=== PATIENT | male | born 1970 | race Caucasian/White ===

== ENCOUNTER 2023-10-09 13:11 | Inpatient (IN) | payer OTHER, MEDICAID ==
[~2023-10-09] VITALS: Ht 172.7 cm; Wt 141.7 kg
[2023-10-09 13:21] VITALS: BP_SYST 150; PULSE 89; RESP 18; TEMP 99.8; O2SAT 96
--- NOTE | 2023-10-09 13:21 | NUR ---
PT IS A 52M BIB SELF FROM HOME, PRESENTING TO ED WITH MULTIPLE COMPLAINTS. PT STATES HAVING A MDRO URINE INFECTION THAT HE WAS SUPPOSED TO HAVE RECEIVED ERTHROPENEM (D/T SUSCEPTIBILITY) BUT NEVER RECEIVED
--- NOTE | 2023-10-09 13:30 | NUR ---
DR WILLIAM AT BEDSIDE, EVALUATING PT
--- NOTE | 2023-10-09 13:40 | NUR ---
PT STATING HE NEEDS VANCOMYCIN AND ERTHOPENEM FOR STAPH INFECTION IN URINE. PT BRINGING URINE CULTURE SHOWING 50K+ STAPH IN URINE CULTURE DONE 3 DAYS AGO. INFORMED PT THAT ER WILL NEED OWN LABWORK AND DIAGNOSTIC FINDINGS PRIOR TO ANY ABX ADMINISTRATION. PT STATING ER STAFF IS ATTEMPTING TO KILL PT AND THAT THEY ARE TREATING HIM LIKE A LIAR. INFORMED PT THAT PT'S STORY IS BEING HEARD BUT ER WORKUP IS NECESSARY PRIOR TO ER PHYSICIAN'S DECISION MAKING. PT REPEATING THE NEED FOR ABX STAT AND THAT HE WENT TO [employer] AND THAT ER DECISION MAKING IS FLAWED.
[2023-10-09] MEDS: NS 1000 ML IV.SOLN IV ONE (13:57)
--- NOTE | 2023-10-09 14:15 | NUR ---
WALKED INTO PT ROOM, PT AGAIN REPEATING THAT STAT VANCO AND ERTHROPENEM IS REQUIRED FOR HIS CONDITION AND QUESTIONING WHY ER PHYSICIAN WILL NOT ORDER ABX. ATTEMPTED TO EDUCATE PT REGARDING ER WORKUP NEEDING TO BE PERFORMED PRIOR TO ABX ADMINISTRATION AND ER DECISION MAKING BY THE PHYSICIAN. PT ADAMANTLY STATING THAT HE NEEDS ABX OR HE WILL IN THE ER D/T POOR CARE BY ER STAFF. ATTEMPTED TO EDUCATE PT REGARDING NECESSARY ER WORKUP PRIOR TO MEDICATION REGIMEN. PT DENYING NECESSITY OF WORKUP AND VOICING FRUSTRATION WHY ER STAFF WILL NOT BELIEVE HIM.
[2023-10-09 14:18] LABS: BASOPHILS # (AUTO) 0.1 K/uL (0.0-0.2); BASOPHILS % (AUTO) 0.6 % (0.0-2.0); EOSINOPHILS # (AUTO) 0.2 K/uL (0.0-0.4); HEMATOCRIT 43.3 % (36-54); HEMOGLOBIN 14.3 g/dL (14.0-18.0); LYMPHOCYTES # (AUTO) 1.7 K/uL (1.0-5.5); LYMPHOCYTES % (AUTO) 18.5 % (20.5-51.5); MEAN CORPUSCULAR HEMOGLOBIN 27 pg (27-31); MEAN CORPUSCULAR HGB CONC 33 % (32-36); MEAN CORPUSCULAR VOLUME 83 fL (79.0-98.0); MONOCYTES # (AUTO) 0.8 K/uL (0.0-1.0); MONOCYTES % (AUTO) 8.3 % (1.7-9.3); NEUTROPHILS # (AUTO) 6.4 K/uL (1.8-7.7); NEUTROPHILS % (AUTO) 70.6 % (40.0-70.0); PLATELET COUNT (AUTO) 263 K/uL (130-430); RED BLOOD CELL COUNT(AUTO) 5.24 MIL/uL (4.2-6.2); RED CELL DISTRIBUTION WIDTH 14.8 % (9.0-15.0); WHITE BLOOD COUNT (AUTO) 9.1 K/uL (4.8-10.8)
--- NOTE | 2023-10-09 14:20 | NUR ---
PT SET OFF ALARM, NO DISTRESS PT COMPLAINS OF WANTING TO DICTATE THE HOSPITAL PROCESS. REASSURED PT OF PROCESS AND REQUESTED PATIENCE. PT CONTINUES TO DEMAND QUICKER SERVICE.
--- NOTE | 2023-10-09 14:24 | NUR ---
UPON RETURNING TO ROOM, PT VOICING CONCERN REGARDING HIS PROSTATITIS AND THAT HIS BLADDER WILL BURST AND THAT HE WILL IN ER. PT STATING UROLOGIST MASSAGED HIS PROSTATE TO OBTAIN URINE CULTURE CONTAINING STAPH. QUESTIONED PT HOW URINE SPECIMEN IS OBTAINED/PRODUCED. PT STATING URINE COMES FROM PROSTATE AND THAT UROLOGIST HAD TO MASSAGE HIS PROSTATE TO OBTAIN PROSTATE CULTURE FOR URINE. EDUCATED PT THAT URINE COMES FROM BLADDER FROM THE KIDNEYS AND THAT PT'S PAPER IS SHOWING URINE CULTURE, NOT PROSTATE CULTURE. PT REQUESTING ER PHYSICIAN TO ADD ON PSA AND ABX (VANCO, ERTHROPENEM). EMPHASIZED TO PT AGAIN THE NEED FOR ER WORKUP PRIOR TO ABX TREATMENT TO DETERMINE THE NEED AND ER PHYSICIAN DECISION.
[2023-10-09 14:25] LABS: ALANINE AMINOTRANSFERASE 101 U/L (12-78); ALBUMIN 3.6 g/dL (3.4-4.8); ANION GAP 12 (5-15); ASPARTATE AMINOTRANSFERASE 58 U/L (10-37); BILIRUBIN,DIRECT 0.1 mg/dL (0.0-0.3); CALCIUM 9.2 mg/dL (8.4-11.0); CARBON DIOXIDE 24 mmol/L (23-29); CHLORIDE 104 mmol/L (98-107); CREATININE 0.81 mg/dL (0.55-1.30); GFR AFRICAN AMERICAN 129 mL/min (>90); GFR NON AFRICAN-AMERICAN 107 mL/min (>90); GLUCOSE 121 mg/dL (74-106); SODIUM SERUM 140 mmol/L (136-145); TOTAL BILIRUBIN 0.4 mg/dL (0.0-1.0); TOTAL PROTEIN, SERUM 7.5 g/dL (6.4-8.3); UREA NITROGEN, BLOOD 19 mg/dL (8-21)
[2023-10-09 14:26] LABS: PROTHROMBIN TIME 10.5 SECS (9.5-12.5)
[2023-10-09 14:30] LABS: BILIRUBIN,URINE NEGATIVE (NEGATIVE); BLOOD, URINE NEGATIVE (NEGATIVE); CLARITY/URINE CLEAR (CLEAR); COLOR,URINE YELLOW (YELLOW); GLUCOSE,URINE NEGATIVE (NEGATIVE); KETONES,URINE TRACE (NEGATIVE); LEUKOCYTE ESTERASE ,URINE NEGATIVE (NEGATIVE); NITRITE, URINE NEGATIVE (NEGATIVE); PROTEIN URINE TRACE (NEGATIVE); UROBILINOGEN,URINE 0.2 (0.2-1.0)
[2023-10-09 14:38] LABS: BACTERIA,URINE RARE /HPF (None Seen); CALCIUM OXALATE CRYSTALS,UR 0-10 /HPF (None Seen); MUCUS,URINE None Seen /LPF (None Seen); RBC,URINE NONE SEEN /HPF (0-3); WBC,URINE NONE SEEN /HPF (0-3)
--- NOTE | 2023-10-09 14:40 | NUR ---
PT WALKING UP TO NURSING STATION AND REQUESTING TO SPEAK WITH DR. WILLIAM, ATTEMPTING TO DETERMINE PLAN OF CARE FOR HIMSELF, STATING THAT HE NEEDS THE VANCO AND ERTHROPENEM STAT. PT VOICING FRUSTRATION ON WHY HE HAS NOT RECEIVED ANY ABX. INSTRUCTED PT TO RETURN TO ROOM AND THAT ER WORKUP IS STILL PENDING. PT TAKEN BACK TO HIS ROOM BUT CONTINUING TO ARGUE WITH ER STAFF REGARDING MEDICATION REGIMEN THAT PT SELF-STATING THE NEED FOR.
--- NOTE | 2023-10-09 15:00 | NUR ---
PT SET OFF ALARM, UPON ASSESSING PT AND ENVIRONMENT NO SIGNS OF DISTRESS. PT DEMANDS QUICKER SERVICE. NOTIFIED CHARGE OF PATIENTS BEHAVIORAL CONCERNS. SECURITY PRESENT.
--- NOTE | 2023-10-09 15:06 | NUR ---
bladder scan completed. 0 ml noted in bladder. notified
--- NOTE | 2023-10-09 15:45 | NUR ---
PT WALKING OUT OF ROOM, REQUESTING HIS VANCOMYCIN TO BE DELIVERED TO HIM FOR HIS FATAL PROSTATITIS. PT STATING HE IS DYING AND THAT ER STAFF IS WAITING FOR HIM TO PASS. INFORMED PT REGARDING VANCOMYCIN PER PHARMACY AND THAT PHARMACY IS STILL PREPARING MEDICATION. PT VOICING FRUSTRATION OVER WHY HIS STAT VANCOMYCIN HAS YET TO BE DELIVERED/ADMINISTERED. EDUCATED PT ON TIME BEING NEEDED FOR CORRECT PROCESS AND SAFE MEDICATION ADMINISTRATION.
[2023-10-09] MEDS: LORazepam 2 MG/ML VIAL IVP ONE (16:04)
--- NOTE | 2023-10-09 16:04 | NUR ---
ATTEMPTED TO MEDICATE PT WITH ATIVAN 1MG ORDERED BY DR WILLIAM. PT STATING BECAUSE HE WAS NOT ABLE TO VISUALIZE THE BLUE CAP COMING OFF OF THE VIAL WITH HIS OWN EYES, PT STATING HE IS WORRIED D/T NOT SEEING THE MED PULL HIMSELF. PT REQUESTING PRIMARY RN TO PULL ANOTHER DOSE OF ATIVAN TO DOSE IN FRONT OF HIM. INFORMED PT REGARDING BENZODIAZEPINE BEING A SCHEDULED DRUG AND THAT NEW DOSE CANNOT BE SIMPLY PULLED FROM [facility]. PT STATING HE WILL PAY $100 FOR ANOTHER VIAL WITH HIS MEDICAL INSURANCE. INFORMED PT THAT D/T NARCOTIC POLICY, PT CANNOT RECEIVE A SECOND VIAL PER HIS OWN WILL AND THAT MEDICATION WILL BE WASTED D/T REFUSAL. PT VERBALIZED UNDERSTANDING.
--- NOTE | 2023-10-09 16:30 | NUR ---
MEDICATION VERIFIED IN FRONT OF PATIENT. ALLOWED PT TO TOUCH MEDICATION TO REASSURE REGARDING MEDICATION TAMPER. PT REQUESTING BAG TO BE SPIKED IN FRONT OF HIM. BAG SPIKED IN FRONT OF PATIENT AND STERILE TECHNIQUE USED FOR CLEANING IV SALINE LOCK W ALCOHOL WIPE AND STARTING IV INFUSION PRIOR TO CONNECTING TO PT TO VISUALIZE FLOW OF CONSTITUTION. PT FINALLY VERBALIZING UNDERSTANDING OF MEDICATION ADMINISTRATION AND ALLOWING FOR MEDICATION TO BE GIVEN. VANCOMYCIN INFUSING AT 125ML/HR TO R WRIST 20G PIV.
[2023-10-09] MEDS: VANCOMYCIN HCL 1.25 GM/NS 250 ML IV SCH (16:41)
--- NOTE | 2023-10-09 16:54 | NUR ---
# 20 gauge angiocath placed to L FOREARM. Use of asceptic technique. Opsite placed over site. Blood return noted. Blood for lab drawn from site. Flushed with 10 cc of normal saline. No evidence of infiltration noted.
--- NOTE | 2023-10-09 17:20 | NUR ---
PT PROVIDED LUNCH BOX AND ORANGE JUICE PER REQUEST. PT CALM AND COOPERATIVE IN BED.
[2023-10-09] MEDS ORDERED: DEXTROSE 50% JECT 50 ML DISP.SYRIN IVP PRN (17:45)
[2023-10-09] MEDS ORDERED: ONDANSETRON HCL 4 MG/2 ML VIAL IVP PRN (18:15)
[2023-10-09] MEDS ORDERED: ACETAMINOPHEN 325 MG TABLET PO PRN ×2 (18:15)
--- NOTE | 2023-10-09 18:27 | NUR ---
Admit bed requested Patient will be admitted to care of . Admitted to med surg unit. Diagnosis acute prostatitis with urinary retention Inpatient (Yes or No) y Observation (Yes or No) n Orientation concerns or request close to nursing station (Yes or No) n Covid Status n/a On vent or bipap n Isolation requirements n Needs a sitter n From Home (Yes or if No enter name of facility) y Requires Dialysis (Yes or No) n Med Rec Completed (Yes of No) y
--- NOTE | 2023-10-09 18:35 | NUR ---
PT TAKEN TO CT VIA WHEELCHAIR, ACCOMPANIED BY KACIE GALEAS
--- NOTE | 2023-10-09 19:05 | NUR ---
PT BACK IN ER, PLACED BACK IN BED
--- NOTE | 2023-10-09 19:15 | NUR ---
PRESENTED PYRIDIUM 200MG TO PT (100MG X2). EDUCATED PT ON DOSING AND RATIONALE FOR MEDICATION. PT STATING THAT HE ALREADY TOOK A DOSE AND THAT TAKING 200MG WOULD REMAIN IN HIS SYSTEM FOR TOO LONG AND REFUSED TO TAKE MEDICATION. EDUCATED PT REGARDING MEDICATION AND WHY PT IS RECOMMENDED TO TAKE MEDICATION. PT STILL REFUSING TO TAKE MEDICATION AND REQUESTING ERTHROPENEM AND STATING HE NEEDS TO SPEAK WITH ER PHYSICIAN TO DICTATE HIS PLAN OF CARE. INFORMED PT THAT THERE HAS BEEN AN INFECTIOUS DISEASE PHYSICIAN CONSULTED FOR THE CASE FOR MDRO URINE CULTURE. PT HYPER-FOCUSED ON ERTHROPENEM AND QUESTIONING WHEN HE WILL GET HIS DOSE OF ERTHROPENEM. INFORMED PT THAT HE CANNOT DICTATE HIS OWN CARE AND THAT HOSPITALIST AND CONSULTED PHYSICIANS WILL DETERMINE PLAN OF CARE FOR HIM. PT STATING WHAT ABX HAS HOSPITALIST ORDERED AND REQUESTING TO SPEAK WITH HOSPITALIST TO ORDER ABX. AGAIN, EMPHASIZED TO PT THAT HE CAN ONLY SUGGEST BUT NOT DICTATE HIS OWN CARE IN THE HOSPITAL.
[2023-10-09] MEDS: PHENAZOPYRIDINE HCL 100 MG TABLET PO ONE (19:19)
--- NOTE | 2023-10-09 19:30 | NUR ---
REPORT GIVEN TO MONICA COKER WITH OPPORTUNITIES FOR QUESTIONS AND ANSWERS PROVIDED. CONTINUATION OF CARE ASSUMED.
--- NOTE | 2023-10-09 19:57 | NUR ---
Received patient in Bed#8, report given by MONICA Saeed. Patient came in for urinary problem. Pain scale 10/10. Patient is alert/orientedx4, able to make needs known. Patient is frequently requesting assitance and repeteadly insist his own medication to be given. No family member at the bedside. Vital signs taken, stable. IV line to (R)wrist & (L)Forearm with both #20 gauge, intact and patent. Infused well. On room air, saturating at 94%. Unlabored breathing. No distress noted. Will continue with the plan of care.
[2023-10-09 20:00] VITALS: BP_SYST 131; PULSE 82; RESP 20; TEMP 98; O2SAT 97
--- NOTE | 2023-10-09 20:00 | NUR ---
Provide PM snacks per patient request and demanding for more. Assisted the patient in cleaning the floor and sorrounding areas to ensure safe environment. Notified EVS of the need for room cleaning.
--- NOTE | 2023-10-09 20:33 | NUR ---
Patient will be admitted to care of Dr. Willett. Admitted to medsurg unit. Will go to room 123B. Belongings list completed. Complete and up to date summary report printed. SBAR report to be given to MONICA Berg at bedside with opportunity for questions.
--- NOTE | 2023-10-09 20:40 | NUR ---
ADMISSION RECEIVED BEDSIDE REPORT FROM ER NURSE, SHEELA. PT ARRIVED VIA GURNEY, PT IS AMBULATORY, ABLE TO WALK AND TRANSFER TO BED IN ROOM 123-B BY HIMSELF. A/OX4. WITH COMPLAIN OF URINARY PROBLEMS. ORIENTATED TO THE ROOM . CALL LIGHT WITHIN REACH. BED LOCKED IN LOWEST POSITION.
[2023-10-09 21:00] VITALS: BP_SYST 132; PULSE 74; RESP 16; TEMP 98.1
[2023-10-09 21:34] VITALS: O2SAT 98
--- NOTE | 2023-10-09 21:48 | NUR ---
MD RAMIREZ CALLED BACK. MADE ORDERS. TORB AND VERIFIED.
[2023-10-09] MEDS: VANCOMYCIN HCL 1.25 GM/NS 250 ML IV ONE (23:24)
[2023-10-10 00:20] VITALS: BP_SYST 139; PULSE 79; RESP 18; TEMP 98.6; O2SAT 97
[2023-10-10] MEDS: HYDROcodone/ACETAMIN 10-325 MG TAB PO PRN (00:50)
--- NOTE | 2023-10-10 00:50 | NUR ---
DUE MEDICATION GIVEN, PT COMPLAINED OF PAIN, NORCO 10 PO PRN GIVEN FOR PAIN. PT STILL COMPLAINED OF PAIN AND ASKING FOR DILAUDID BUT EXPLAINED TO HIM DILAUDID IS CONTRAINDICATED FOR PROSTATITIS PER MD RAMIREZ. PT STILL NOT LISTENING AFTER EXPLANATION IS GIVEN.
--- NOTE | 2023-10-10 02:08 | NUR ---
CONSULTATION PAGED/CALLED Reason for Consultation: MDRO PROSTATITIS Person Who was Notified: STEPHANIE Consulting Physician: NANCY Potato Bucker Specialty: Ordering Physician: JAMES
--- NOTE | 2023-10-10 06:23 | NUR ---
BS= 107, NO ISS COVERAGE GIVEN. PT NOT IN DISTRESS. CALL LIGHT WITHIN REACH.PT AMBULATORY.
--- NOTE | 2023-10-10 06:32 | NUR ---
CLOSING NOTES PT. IS IN BED RESTING, STILL ASKING FOR DILAUDID EVEN AFTER GIVING EXPLANATION. AND INFORMED PATIENT MD WILL MAKE ROUNDS IN THE MORNING IF SHE HAS CONCERNS ABOUT MEDICATION. ALL NEEDS MET THROUGHOUT SHIFT. BED ALARM OFF. PT IS AMBULATORY. AND CALL LIGHT WITHIN REACH. WILL ENDORSE TO MORNING SHIFT NURSE FOE CONTINUITY OF CARE.
--- NOTE | 2023-10-10 08:00 | NUR ---
ASSESSMENT DONE PT AAOX 4. VSS STABLE. AFEBRILE HAS IV ACCESS ON LEFT FOREARM #20 SL HAS IV ACCESS ON RT HAND/WRIST #20 SL REFUSED TO WEAR HOSPITAL GOWN. INSISTING TO HAVE VANCOMYCIN IV RIGHT AWAY. BED LOW POSITION. REFUSED TO HAVE BED ALARM MARKET RESEARCH INTERVIEWER LIGHTS WITHIN REACH CONTINUE TO MONITOR
[2023-10-10 08:24] LABS: BASOPHILS % (AUTO) 0.8 % (0.0-2.0); EOSINOPHILS # (AUTO) 0.2 K/uL (0.0-0.4); HEMATOCRIT 40.5 % (36-54); HEMOGLOBIN 13.4 g/dL (14.0-18.0); LYMPHOCYTES # (AUTO) 1.8 K/uL (1.0-5.5); LYMPHOCYTES % (AUTO) 29.5 % (20.5-51.5); MEAN CORPUSCULAR HEMOGLOBIN 27 pg (27-31); MEAN CORPUSCULAR HGB CONC 33 % (32-36); MEAN CORPUSCULAR VOLUME 82 fL (79.0-98.0); MONOCYTES # (AUTO) 0.5 K/uL (0.0-1.0); MONOCYTES % (AUTO) 8.5 % (1.7-9.3); NEUTROPHILS # (AUTO) 3.6 K/uL (1.8-7.7); NEUTROPHILS % (AUTO) 58.2 % (40.0-70.0); PLATELET COUNT (AUTO) 216 K/uL (130-430); RED BLOOD CELL COUNT(AUTO) 4.94 MIL/uL (4.2-6.2); RED CELL DISTRIBUTION WIDTH 14.8 % (9.0-15.0); WHITE BLOOD COUNT (AUTO) 6.1 K/uL (4.8-10.8)
[2023-10-10 08:35] LABS: PROTHROMBIN TIME 10.5 SECS (9.5-12.5)
[2023-10-10 08:40] LABS: ALBUMIN 3.1 g/dL (3.4-4.8); CALCIUM 8.8 mg/dL (8.4-11.0); CREATININE 0.67 mg/dL (0.55-1.30); POTASSIUM 4.3 mmol/L (3.5-5.1); TOTAL BILIRUBIN 0.3 mg/dL (0.0-1.0); TOTAL PROTEIN, SERUM 6.6 g/dL (6.4-8.3)
[2023-10-10 08:45] VITALS: BP_SYST 170; PULSE 69; RESP 18; TEMP 97; O2SAT 96
[2023-10-10] MEDS: PHENAZOPYRIDINE HCL 100 MG TABLET PO SCH (08:53)
--- NOTE | 2023-10-10 09:00 | NUR ---
PATIENT KEEPS COMING TO THE STATION FOR ANYTHING ELSE. VERY NEEDY AND HARD HEADED. SECURITY CALLED MANY TIMES THE WHOLE DAY.
--- NOTE | 2023-10-10 09:02 | NUR ---
REFUSED PYRIDIUM. VERY NEEDY. NORCO PO GIVEN.
[2023-10-10] MEDS: MORPHINE 4 MG INJ. 4 MG/ML VIAL IVP ONE (10:25)
--- NOTE | 2023-10-10 10:32 | NUR ---
PATIENT: PATIENT YELLING FOR NURSE, ENTERED ROOM PATIENT STATED "ITS BURNING IN MY URETHRA" OFFERED ASSISTANCE TO THE PATIENT STATED THAT HE WANTS MORPHINE, INVANZ AND A BLADDER SCAN. PATIENT RN WITH ANOTHER PATIENT, MORPHINE IV GIVEN, OPENED IN FRONT OF PATIENT, PATIENT STATED HE WASN'T HAPPY THAT RN DILUTED MORPHINE INTO SALINE, STATED RN NEEDED TO OPEN NEW FLUSH HE DIDN'T SEE RN OPEN FLUSH PACKAGE IN FRONT OF HIM ALTHOUGH FLUSHES OPENED AT SAME TIME. MEDICATION ADMINISTERED PATIENT STATED, I NEED THIS ANTIBIOTIC REMOVING IV INVANZ FROM PERSONAL BAG, EDUCATION PROVIDED THAT PATIENT WAS CURRENTLY RECEIVING VANCOMYCIN, PER THE MD ORDER AND THE RN WOULD FOLLOW UP. PT REMAINED UPSET REGARDLESS OF ASSISTANCE PROVIDED BY STAFF.
[2023-10-10 11:00] VITALS: O2SAT 98
[2023-10-10 11:03] VITALS: BP_SYST 111; BP_SYST 131; PULSE 59; PULSE 61; RESP 16; TEMP 97.6; TEMP 98.2; O2SAT 97
[2023-10-10] MEDS ORDERED: ONDANSETRON HCL 4 MG/2 ML VIAL IVP PRN (11:15)
--- NOTE | 2023-10-10 12:00 | NUR ---
LATEST BS 123 MG/DL. NO COVERAGE GIVEN.
[2023-10-10] MEDS: MEROPENEM 1 GM in NS 100 ML IV SCH (14:15)
[2023-10-10 16:07] VITALS: BP_SYST 113; PULSE 73; RESP 17; TEMP 98.4; O2SAT 96
--- NOTE | 2023-10-10 16:29 | NUR ---
REFUSAL: "PATIENT REFUSED MORPHINE WHEN THIS RN OFFERED STATING IT WAS CONTAMINATE, BECAUSE HE DIDN'T WITNESS RN OPENING VIAL, VIAL OPENED IN ROOM WITH PATIENT, PT REQUESTING DILAUDID STATING THAT WHAT WORKS
[2023-10-10] MEDS: VANCOMYCIN HCL 1,500 MG in NS 250 ML IV SCH (16:53)
[2023-10-10] MEDS: MORPHINE 4 MG INJ. 4 MG/ML VIAL IVP PRN (17:12)
--- NOTE | 2023-10-10 18:00 | NUR ---
LATEST BS 126 MG/DL. NO COVERAGE GIVEN. PYRIDIUM TABLET GIVEN TO THE PATIENT.
--- NOTE | 2023-10-10 20:00 | NUR ---
SBAR REPORT GIVEN TO ALEJANDRO ANDERSON.
--- NOTE | 2023-10-10 20:13 | NUR ---
NOTES; PT. OUT IN THE HALLWAY KEEPS SAYING THAT HE NEEDS A BLADDER SCAN VERBALIZING HE IS FULL. NURSE ALLEN AWARE. FOUND OUT BLADDER SCAN IS BROKEN AND ITS ON REPAIR AND THERE IS ONLY 1 MACHINE THROUGHOUT THE WHOLE HOSPITAL. INFORMED PT. BUT INSISTING ON THE BLADDER SCAN, SECURITY WITH HIM SINCE HE IS NON COMPLIANT ON LISTENING TO NURSES. CALLED DR. GONZALEZ EXCHANGE TO INFORM THE PROBLEM. NURSE ALLEN ATTENDING TO PT.
[2023-10-10] MEDS: QUEtiapine FUMARATE 25 MG TABLET PO SCH (21:00)
[2023-10-10 23:27] VITALS: O2SAT 96
--- NOTE | 2023-10-10 23:34 | NUR ---
MST shift assessment completed at 2129, charted late
--- NOTE | 2023-10-11 07:02 | NUR ---
OPENING NOTE PATIENT WALKING UP AND DOWN HALLS AND STOPPING FREQUENTLY AT NURSES' STATION. PATIENT APPEARS ANXIOUS AND IS ASKING FOR MEDICATIONS HOURS BEFORE MEDICATIONS ARE DUE. PATIENT REFUSES TO WEAR HOSPITAL GOWN. PATIENT ARGUING WITH HOSPITAL SECURITY AND STAFF AND REFUSES TO GO BACK TO ASSIGNED ROOM. PATIENT DOES NOT HAVE ANY COMPLAINTS ABOUT PAIN, HOWEVER, IS ANXIOUS ABOUT POSSIBLE INFECTION.
[2023-10-11 08:01] VITALS: BP_SYST 115; PULSE 68; RESP 18; TEMP 98.6; O2SAT 99
[2023-10-11 08:30] VITALS: O2SAT 98
--- NOTE | 2023-10-11 08:40 | NUR ---
patient refuses to drink water, only small amounts of apple juice. states the water is not distilled therefore will not drink it.
--- NOTE | 2023-10-11 11:30 | NUR ---
PATIENT'S BLOOD SUGAR IS 176. PATIENT REFUSING INSULIN, STATING IT IS NOT CLEAN.
--- NOTE | 2023-10-11 12:00 | NUR ---
patient informed that he needs to have a midline placed for continued iv antibiotics at home. patient refusing midline placement, stating it is not clean
[2023-10-11 12:02] VITALS: BP_SYST 113; PULSE 71; RESP 17; TEMP 97.5; O2SAT 98
--- NOTE | 2023-10-11 14:46 | NUR ---
Dietitian Recommendations Consider CCHO, 2gm Na diet. Encourage good PO intakes. Please refer to nutrition assessment. Addendum: 10/11/23 at [address] Amended: Links added.
[2023-10-11 16:01] VITALS: BP_SYST 116; PULSE 68; RESP 18; TEMP 97.5; O2SAT 99
--- NOTE | 2023-10-11 17:15 | NUR ---
patient refusing blood sugar check, stating it is not clean
--- NOTE | 2023-10-11 17:23 | NUR ---
CONSULTATION PAGED REASON FOR CONSULTATION: OCD WAS CONSULT CALLED? Y PERSON WHO WAS NOTIFIED: LEFT A VOICEMAIL CONSULTING PHYSICIAN: LILIANA SOLITARIO SALES EXHIBITOR SPECIALTY: PSYCHE SALES EXHIBITOR PHONE NUMBER: [phone] REQUESTING PHYSICIAN: SADAF ESCOTO
--- NOTE | 2023-10-11 18:41 | NUR ---
BLADDER SCAN DONE AFTER PATIENT REQUEST. 0ML NOTED IN BLADDER SCANNER. PATIENT INSISTENT THAT NURSE IS LYING TO HIM EVEN AFTER NURSE HAD PATIENT OBSERVE RESULTS OF SCAN.
--- NOTE | 2023-10-11 18:50 | NUR ---
CLOSING NOTE: PATIENT IS WALKING IN AND OUT OF ASSIGNED ROOM ASKING FOR RN TO ADMINISTER IV MEDICATION. STAFF CONTINUES TO ENCOURAGE PATIENT TO USE CALL LIGHT INSTEAD OF WALKING TO NURSES' STATION. PATIENT APPEARS ANXIOUS REGARDING WHEN HE WILL GET HIS NEXT IV MEDICATION. PATIENT CONTINUES TO APPROACH NURSES WHILE THEY ARE ASSISTING OTHER PATIENTS IN THEIR ASSIGNED ROOMS.
[2023-10-11 20:00] VITALS: BP_SYST 136; PULSE 95; RESP 20; TEMP 98.4; O2SAT 94
--- NOTE | 2023-10-11 20:00 | NUR ---
OPENING NOTE: PATIENT AT THE NURSING STATING ASKING QUESTIONS REGARDING STAFFING. INFORMED OF THE NEXT NURSE THAT WILL BE ASSIGNED. PATIENT IN NO ACUTE DISTRESS, ABLE TO MAKE WANTS AND NEEDS KNOWN TO STAFF.
[2023-10-12] VITALS: BP_SYST 122; PULSE 92; RESP 18; TEMP 98; O2SAT 95
--- NOTE | 2023-10-12 05:12 | NUR ---
TELE PSYCH CONSULT CALLED FOR 8AM FOR OCD
[2023-10-12 05:31] LABS: ERYTHROCYTE SEDIMENTATION RATE 20 MM/HR (0-15)
[2023-10-12 05:44] LABS: BASOPHILS # (AUTO) 0.1 K/uL (0.0-0.2); BASOPHILS % (AUTO) 0.9 % (0.0-2.0); EOSINOPHILS # (AUTO) 0.2 K/uL (0.0-0.4); HEMATOCRIT 38.4 % (36-54); LYMPHOCYTES # (AUTO) 1.7 K/uL (1.0-5.5); LYMPHOCYTES % (AUTO) 25.2 % (20.5-51.5); MEAN CORPUSCULAR HEMOGLOBIN 28 pg (27-31); MEAN CORPUSCULAR HGB CONC 34 % (32-36); MEAN CORPUSCULAR VOLUME 82 fL (79.0-98.0); MONOCYTES # (AUTO) 0.5 K/uL (0.0-1.0); MONOCYTES % (AUTO) 7.3 % (1.7-9.3); NEUTROPHILS # (AUTO) 4.4 K/uL (1.8-7.7); NEUTROPHILS % (AUTO) 63.6 % (40.0-70.0); PLATELET COUNT (AUTO) 228 K/uL (130-430); RED BLOOD CELL COUNT(AUTO) 4.69 MIL/uL (4.2-6.2); RED CELL DISTRIBUTION WIDTH 14.8 % (9.0-15.0); WHITE BLOOD COUNT (AUTO) 6.9 K/uL (4.8-10.8)
[2023-10-12 06:06] LABS: CALCIUM 8.8 mg/dL (8.4-11.0); CREATININE 0.71 mg/dL (0.55-1.30); POTASSIUM 4.3 mmol/L (3.5-5.1); TOTAL BILIRUBIN 0.3 mg/dL (0.0-1.0); TOTAL PROTEIN, SERUM 6.4 g/dL (6.4-8.3)
--- NOTE | 2023-10-12 06:49 | NUR ---
CLOSING NOTE: WILL GIVE BEDSIDE REPORT TO ONCOMING SHIFT. REFUSED BLOOD SUGAR CHECK AND MORNING IV ABT. PATIENT IN STABLE CONDITION. BED LOCKED AND IN LOWEST POSITION WITH CALL LIGHT WITHIN REACH.
--- NOTE | 2023-10-12 07:20 | NUR ---
INITIAL NOTES: Patient is aao x4, with episodes of repeating the same question even after answering the question. Patient is c/o bladder pain. Collected 700ml of magnolia colored urine. Denies pain or any discomfort at this time. Respiration is even and unlabored. Remind the patient with the use of call light. Call light within reach. All needs met.
[2023-10-12 08:10] VITALS: BP_SYST 137; PULSE 59; RESP 18; TEMP 97.5; O2SAT 96
--- NOTE | 2023-10-12 10:13 | NUR ---
TELE [facility] CALLED AT [phone] SPOKE WITH MARY ANNE ABRAMS SWITCH INSPECTOR UTILITY OPERATOR.
[2023-10-12 10:18] VITALS: O2SAT 96
--- NOTE | 2023-10-12 10:20 | NUR ---
TELE PSYCH done, pt gets interviewed by Leslie DORAN.
[2023-10-12 12:27] VITALS: BP_SYST 132; PULSE 69; RESP 19; TEMP 97.4; O2SAT 97
--- NOTE | 2023-10-12 15:10 | NUR ---
Vasc Tech re: home environment Met with patient at bedside this afternoon. Per patient, he resides at home with his parents, however they are out of town, and will not return for about another week. The patient states he has a maid who assists him with his ADLs, cooking, and cleaning. As to transportation needs, the patient states he uses [facility] transportation. The discharge plan is to return home once his parents return home. The patient was asked about SNF placement for discharge, and he advised he is in agreement to SNF placement.
[2023-10-12] MEDS ORDERED: DAPTOMYCIN IV SCH (15:30)
[2023-10-12] MEDS ORDERED: NS IV SCH (15:30)
[2023-10-12] MEDS: ERTAPENEM SODIUM 1 GM in NS 50 ML IV SCH (16:25)
[2023-10-12 16:55] VITALS: BP_SYST 135; PULSE 62; RESP 18; TEMP 97.8; O2SAT 96
[2023-10-12] MEDS: DAPTOmycin 500 MG in NS 50 ML IV SCH (17:35)
[2023-10-12 18:28] VITALS: BP_SYST 135; PULSE 62; RESP 18; TEMP 97.8; O2SAT 98
--- NOTE | 2023-10-12 19:00 | NUR ---
DISCHARGE NOTES: Patient is picked up by [facility] via gurney. Patient is AAOx4. Patient is c/o bladder pain 09/16. norco administer per prn order. Patient refused insulin per sliding scale. He is aware of risk and still strongly refused. No s/s of hypo/hyperglycemic reaction at this time. All belongings double check with the patient. No missing belongings. Respiration is even and unlabored. D/c Paperwork signed and explain to the patient. He verbalized understanding. D/C paperwork sent with the ambulance. Patient is very thankful for the service provided. All needs met.
[2023-10-12] MEDS: INSULIN REGULAR, HUMAN 100 UNITS/ML, 3 ML VIAL (humuLIN R) SUBCUT PRN (19:19)
--- NOTE | 2023-10-13 12:24 | NUR ---
Patient to dc to [facility] room 116. Number for report [phone]. [facility] to transport at 5:30 PM . Patient agreed to DC to SNF
[2023-10-13] MEDS ORDERED: CEFU250T85 PO (16:41)
== END 2023-10-12 19:00 | DRG 728 ==
LOC: SED 13:11 → SMU 15:38
PROVIDERS: ADMIT Internal Medicine; ATTEND Internal Medicine
DX: N41.0 Acute prostatitis (principal); E44.1 Mild protein-calorie malnutrition; Z16.24 Resistance to multiple antibiotics; Z68.42 Body mass index [BMI] 45.0-49.9, adult; I11.0 Hypertensive heart disease with heart failure; I50.9 Heart failure, unspecified; E11.9 Type 2 diabetes mellitus without complications; E66.9 Obesity, unspecified; B95.7 Other staphylococcus as the cause of diseases classified elsewhere; N40.1 Benign prostatic hyperplasia with lower urinary tract symptoms; F42.9 Obsessive-compulsive disorder, unspecified; R33.8 Other retention of urine; Z86.16 Personal history of COVID-19; Z83.3 Family history of diabetes mellitus; Z82.49 Family history of ischemic heart disease and other diseases of the circulatory system
CPT/HCPCS: 36415; 71045; 80048; 80053; 80076; 80202; 81000; 81001; 81015; 82948; 83037; 83605; 84484; 85025; 85610; 85651; 85730; 87040; 87086; 93005; 99285; J0878; J1335; J2060; J2185; J2270; J3370; J7050

== ENCOUNTER 2023-10-13 14:06 | Emergency (ER) | payer OTHER, MEDICAID ==
[~2023-10-13] VITALS: Ht 172.7 cm; Wt 154.2 kg
[2023-10-13 14:06] VITALS: BP_SYST 136; PULSE 70; RESP 20; TEMP 98.8; O2SAT 96
[2023-10-13 15:11] LABS: HEMOGLOBIN 14.1 g/dL (14.0-18.0); MEAN CORPUSCULAR HGB CONC 34 % (32-36); PLATELET COUNT (AUTO) 272 K/uL (130-430); WHITE BLOOD COUNT (AUTO) 8.6 K/uL (4.8-10.8)
[2023-10-13 15:13] LABS: CALCIUM 9.3 mg/dL (8.4-11.0); CREATININE 0.66 mg/dL (0.55-1.30); POTASSIUM 3.9 mmol/L (3.5-5.1)
[2023-10-13 15:16] LABS: BASOPHILS # (AUTO) 0.1 K/uL (0.0-0.2); BASOPHILS % (AUTO) 0.9 % (0.0-2.0); EOSINOPHILS # (AUTO) 0.2 K/uL (0.0-0.4); EOSINOPHILS % (AUTO) 2.1 % (0.0-4.0); HEMATOCRIT 41.8 % (36-54); LYMPHOCYTES # (AUTO) 1.6 K/uL (1.0-5.5); LYMPHOCYTES % (AUTO) 18.9 % (20.5-51.5); MEAN CORPUSCULAR HEMOGLOBIN 28 pg (27-31); MEAN CORPUSCULAR VOLUME 81 fL (79.0-98.0); MONOCYTES # (AUTO) 0.8 K/uL (0.0-1.0); MONOCYTES % (AUTO) 9.7 % (1.7-9.3); NEUTROPHILS # (AUTO) 5.9 K/uL (1.8-7.7); NEUTROPHILS % (AUTO) 68.4 % (40.0-70.0); RED BLOOD CELL COUNT(AUTO) 5.13 MIL/uL (4.2-6.2); RED CELL DISTRIBUTION WIDTH 14.8 % (9.0-15.0)
[2023-10-13 15:22] LABS: BILIRUBIN,URINE 1+ (NEGATIVE); BLOOD, URINE NEGATIVE (NEGATIVE); CLARITY/URINE CLEAR (CLEAR); COLOR,URINE ORANGE (YELLOW); GLUCOSE,URINE TRACE (NEGATIVE); KETONES,URINE TRACE (NEGATIVE); LEUKOCYTE ESTERASE ,URINE NEGATIVE (NEGATIVE); NITRITE, URINE POSITIVE (NEGATIVE); PH,URINE 5.5 (5.0-8.0); PROTEIN URINE 2+ (NEGATIVE)
[2023-10-13 15:52] LABS: BACTERIA,URINE FEW /HPF (None Seen); RBC,URINE NONE SEEN /HPF (0-3); WBC,URINE 0-3 /HPF (0-3)
[2023-10-13 15:54] LABS: FINE GRANULAR CASTS,URINE 0-10 /LPF (None Seen); HYALINE CASTS, URINE 0-10 /LPF (None Seen); MUCUS,URINE 1+ /LPF (None Seen)
[2023-10-13] MEDS ORDERED: CEFU250T85 PO (16:41)
[2023-10-13] MEDS ORDERED: CEFEPIME 2 GM/VIAL (MAXIPIME) ONE (16:53)
[2023-10-13] MEDS: CEFEPIME 2 GM in D5W 100 ML IV ONE (17:03)
[2023-10-13] MEDS: HYDROcodone/ACETAMIN 5-325 MG TAB (NORCO/ VICODIN) PO ONE (17:21)
[2023-10-13 19:01] VITALS: BP_SYST 146; PULSE 89; RESP 20; TEMP 98.1; O2SAT 94
== END 2023-10-13 18:32 ==
LOC: SED 14:06
DX: N39.0 Urinary tract infection, site not specified (principal); Z16.24 Resistance to multiple antibiotics; E11.9 Type 2 diabetes mellitus without complications; I11.0 Hypertensive heart disease with heart failure; I50.9 Heart failure, unspecified
CPT/HCPCS: 36415; 80048; 81000; 81001; 81015; 83605; 85025; 87040; 87086; 96365; 99284; J0692

== ENCOUNTER 2023-10-15 23:19 | Emergency (ER) | payer OTHER, MEDICAID ==
[~2023-10-15] VITALS: Ht 170.2 cm; Wt 154.2 kg
[~2023-10-15 23:19] MED LIST: CEFU250T85 PO
[2023-10-15 23:27] VITALS: BP_SYST 180; PULSE 89; RESP 20; TEMP 98.1; O2SAT 96
[2023-10-16 01:03] LABS: BASOPHILS # (AUTO) 0.1 K/uL (0.0-0.2); BASOPHILS % (AUTO) 1.5 % (0.0-2.0); EOSINOPHILS # (AUTO) 0.2 K/uL (0.0-0.4); EOSINOPHILS % (AUTO) 2.3 % (0.0-4.0); HEMATOCRIT 40.6 % (36-54); LYMPHOCYTES # (AUTO) 1.6 K/uL (1.0-5.5); LYMPHOCYTES % (AUTO) 19.7 % (20.5-51.5); MEAN CORPUSCULAR HEMOGLOBIN 28 pg (27-31); MEAN CORPUSCULAR HGB CONC 34 % (32-36); MEAN CORPUSCULAR VOLUME 81 fL (79.0-98.0); MONOCYTES # (AUTO) 0.6 K/uL (0.0-1.0); MONOCYTES % (AUTO) 6.7 % (1.7-9.3); NEUTROPHILS # (AUTO) 5.8 K/uL (1.8-7.7); NEUTROPHILS % (AUTO) 69.8 % (40.0-70.0); PLATELET COUNT (AUTO) 255 K/uL (130-430); RED BLOOD CELL COUNT(AUTO) 5.02 MIL/uL (4.2-6.2); RED CELL DISTRIBUTION WIDTH 14.9 % (9.0-15.0); WHITE BLOOD COUNT (AUTO) 8.3 K/uL (4.8-10.8)
[2023-10-16] MEDS ORDERED: CEFEPIME 2 GM/VIAL (MAXIPIME) ONE ×2 (01:11→01:28)
[2023-10-16 01:22] LABS: CALCIUM 9.3 mg/dL (8.4-11.0); CREATININE 0.83 mg/dL (0.55-1.30); POTASSIUM 3.7 mmol/L (3.5-5.1)
[2023-10-16] MEDS: CEFEPIME 2 GM in D5W 100 ML IV ONE (01:39)
[2023-10-16] MEDS: MORPHINE 4 MG INJ. 4 MG/ML VIAL IVP ONE (01:39)
[2023-10-16 02:46] VITALS: O2SAT 94
[2023-10-16] MEDS ORDERED: SPIR25TA6 PO (03:13)
[2023-10-16] MEDS ORDERED: PANT20TA2 PO (03:13)
[2023-10-16] MEDS ORDERED: finasteride (03:13)
[2023-10-16] MEDS ORDERED: BENI20 IM (03:13)
[2023-10-16] MEDS ORDERED: BUME2TAB8 PO (03:13)
[2023-10-16] MEDS ORDERED: EMPA25TA PO (03:13)
[2023-10-16] MEDS ORDERED: AZIL1TAB2 PO (03:13)
[2023-10-16] MEDS ORDERED: pyridium (03:13)
[2023-10-16] MEDS ORDERED: ASPI-1393 PO (03:13)
[2023-10-16] MEDS ORDERED: LORA2TAB95 PO (03:13)
[2023-10-16] MEDS ORDERED: ROSU40TA PO (03:13)
[2023-10-16] MEDS ORDERED: DUTA0.5C PO (03:13)
[2023-10-16] MEDS ORDERED: TAMS-11 PO (03:13)
[2023-10-16] MEDS ORDERED: NITSL SL (03:13)
[2023-10-16 05:27] VITALS: BP_SYST 136; PULSE 68; RESP 18; TEMP 97.6
[2023-10-16] MEDS ORDERED: ONDANSETRON HCL 4 MG/2 ML VIAL IVP PRN (08:00)
[2023-10-16] MEDS ORDERED: ACETAMINOPHEN 325 MG TABLET PO PRN ×2 (08:00→08:30)
[2023-10-16] MEDS ORDERED: LORazepam 2 MG/ML VIAL IVP PRN (08:00)
[2023-10-16] MEDS ORDERED: NALOXONE HCL 0.4 MG/ML AMP (NARCAN) IVP PRN ×2 (08:00)
[2023-10-16] MEDS ORDERED: HYDROcodone/ACETAMIN 5-325 MG TAB (NORCO/ VICODIN) PO PRN (08:00)
[2023-10-16] MEDS ORDERED: INSULIN REGULAR, HUMAN 100 UNITS/ML, 3 ML VIAL (humuLIN R) SUBCUT PRN (08:00)
[2023-10-16] MEDS ORDERED: HYDROcodone/ACETAMIN 10-325 MG TAB PO PRN (08:00)
[2023-10-16] MEDS ORDERED: HALOPERIDOL LACTATE 5 MG/ML VIAL IM ONE (08:15)
[2023-10-16] MEDS ORDERED: HALOPERIDOL LACTATE 5 MG/ML VIAL ONE (08:20)
[2023-10-16] MEDS ORDERED: ASPIRIN 81 MG TABLET(ECOTRIN) PO SCH (09:00)
[2023-10-16] MEDS ORDERED: TAMSULOSIN HCL 0.4 MG CAP PO SCH (09:00)
[2023-10-16] MEDS ORDERED: EMPAGLIFLOZIN 10 MG TABLET PO SCH (09:00)
[2023-10-16] MEDS ORDERED: SPIRONOLACTONE 25 MG TABLET (ALDACTONE) PO SCH (09:00)
[2023-10-16] MEDS ORDERED: BUMETANIDE 1 MG TABLET PO SCH (09:00)
[2023-10-16] MEDS ORDERED: PANTOPRAZOLE SODIUM 40 MG TAB PO SCH (09:00)
[2023-10-16] MEDS ORDERED: cefuroxime axetiL 250 MG TABLET PO SCH (09:00)
[2023-10-16] MEDS ORDERED: NORMAL SALINE 5 ML DISP.SYRIN IVF SCH (14:00)
[2023-10-16] MEDS ORDERED: DUTASTERIDE 0.5 MG CAPSULE (AVODART) PO SCH (21:00)
[2023-10-16] MEDS ORDERED: ATORVASTATIN 20 MG TABLET PO SCH (21:00)
== END 2023-10-16 08:25 | disposition left against medical advice (07) ==
LOC: SED 23:19 → UNDOADMIN 10-16 03:07 → SMU 10-16 03:07
DX: N41.0 Acute prostatitis (principal); I11.0 Hypertensive heart disease with heart failure; I50.9 Heart failure, unspecified; E11.9 Type 2 diabetes mellitus without complications; E66.01 Morbid (severe) obesity due to excess calories; Z68.43 Body mass index [BMI] 50.0-59.9, adult; Z79.899 Other long term (current) drug therapy; Z79.2 Long term (current) use of antibiotics
CPT/HCPCS: 99284; 80048; 85025; 87040; 36415; 83605; 96365; 96375; J1630; J2270; J0692